=== PATIENT | female | born 1975 | race African-American/Black ===

== ENCOUNTER 2017-02-27 05:25 | Emergency (ER) | payer SELFPAY ==
[~2017-02-27] VITALS: Ht 154.9 cm; Wt 91.0 kg
[2017-02-27] MEDS ORDERED: ONDANSETRON HCL 4MG/2ML VIAL IV STA (07:19)
[2017-02-27] MEDS ORDERED: MORPHINE SULFATE 4 MG/ML CPJ (NOT FOR IM USE) IV STA ×2 (07:19→09:10)
[2017-02-27] MEDS ORDERED: SODIUM CHLORIDE 0.9% 1,000 ML IV ONE (07:19)
[2017-02-27 07:25] LABS: BASOPHILS % 0.3 % (0.0-2.0); EOSINOPHILS % 1.3 % (0.0-5.0); HEMATOCRIT. 35.6 % (36.0-48.0); HEMOGLOBIN. 11.8 g/dL (12.0-16.0); LYMPHOCYTES % 10.6 % (20.0-50.0); MEAN CORPUSCULAR HEMOGLOBIN 29.4 pg (28.0-32.0); MEAN CORPUSCULAR VOLUME 88.3 fL (81.0-99.0); MEAN PLATELET VOLUME 7.5 fl (7.4-10.4); MONOCYTES % 7.7 % (2.0-8.0); NEUTROPHILS % 80.1 % (40.0-76.0); PLATELET 190 x1000/uL (130-400); RED BLOOD CELL COUNT 4.03 mill/uL (4.2-5.4)
[2017-02-27 07:31] LABS: CHLORIDE 112 mEq/L (98-107)
[2017-02-27 07:33] LABS: PROTHROMBIN TIME 10.7 sec (9.4-11.6)
[2017-02-27 07:40] LABS: CARBON DIOXIDE 22 mEq/L (21-32)
[2017-02-27 08:14] LABS: CLARITY URINE CLEAR (CLEAR); COLOR URINE YELLOW (YELLOW); KETONES URINE NEGATIVE (NEGATIVE); LEUKOCYTE ESTERASE URINE NEGATIVE (NEGATIVE); NITRITE URINE NEGATIVE (NEGATIVE); OCCULT BLOOD URINE NEGATIVE (NEGATIVE); PROTEIN URINE NEGATIVE (NEGATIVE); SPECIFIC GRAVITY URINE 1.021 (1.005-1.030); UROBILINOGEN URINE 0.2 E.U./dL (0.2-1.0)
[2017-02-27] MEDS ORDERED: FAMOTIDINE 20MG/2ML VIAL IV ONE (09:15)
[2017-02-27] MEDS ORDERED: IOHEXOL-300 100 ML BOTTLE ONE (10:05)
[2017-02-27] MEDS ORDERED: METOCLOPRAMIDE HCL 10MG/2ML VIAL IV STA (10:49)
[2017-02-27] MEDS ORDERED: HYDROCODONE/APAP 7.5/325MG 1 TAB TABLET PO ONE (11:00)
[2017-02-27 11:55] VITALS: BP 100/67
== END 2017-02-27 12:05 | disposition home or self-care (01) ==
LOC: ER 07:12
DX: K52.9 Noninfective gastroenteritis and colitis, unspecified (principal); F31.9 Bipolar disorder, unspecified; F43.20 Adjustment disorder, unspecified; Z90.49 Acquired absence of other specified parts of digestive tract
CPT/HCPCS: 36415; 74177; 80053; 81003; 81025; 83690; 85025; 85610; 96361; 96374; 96375; 96376; 99285; J2270; J2405; J2765; J3490; J7030; Q9967; Z7610

== ENCOUNTER 2017-12-01 17:54 | Emergency (ER) | payer SELFPAY ==
[~2017-12-01] VITALS: Ht 180.3 cm; Wt 91.0 kg
[2017-12-01] MEDS ORDERED: ONDANSETRON HCL 4MG/2ML INJ IV STA (19:52)
[2017-12-01] MEDS ORDERED: MORPHINE SULFATE 4 MG/ML CPJ (NOT FOR IM USE) IV STA (19:52)
[2017-12-01] MEDS ORDERED: FAMOTIDINE 20MG/2ML VIAL IV STA (19:52)
[2017-12-01] MEDS ORDERED: SODIUM CHLORIDE 0.9% 1,000 ML IV ONE (19:52)
[2017-12-01] MEDS ORDERED: LORAZEPAM 2MG/ML CPJ IV ONE ×2 (20:00→22:30)
[2017-12-01 20:57] LABS: CLARITY URINE CLOUDY (CLEAR); COLOR URINE YELLOW (YELLOW); KETONES URINE NEGATIVE (NEGATIVE); LEUKOCYTE ESTERASE URINE NEGATIVE (NEGATIVE); NITRITE URINE NEGATIVE (NEGATIVE); OCCULT BLOOD URINE NEGATIVE (NEGATIVE); PH URINE 7.5 (4.5-8.0); PROTEIN URINE NEGATIVE (NEGATIVE); SPECIFIC GRAVITY URINE 1.019 (1.005-1.030); UROBILINOGEN URINE 0.2 E.U./dL (0.2-1.0)
[2017-12-01 21:07] LABS: *AMPHETAMINES SCREEN URINE NEGATIVE (NEGATIVE); *BARBITURATES SCREEN URINE NEGATIVE (NEGATIVE); *BENZODIAZEPINES SCREEN URINE NEGATIVE (NEGATIVE); *COCAINE SCREEN URINE NEGATIVE (NEGATIVE)
[2017-12-01 21:08] LABS: METHADONE URINE SCREEN NEGATIVE (NEGATIVE); PHENCYCLIDINE URINE SCREEN NEGATIVE (NEGATIVE)
[2017-12-01 21:09] LABS: CANNABINOID URINE SCREEN PRESUMTIVE POSITIVE (NEGATIVE); OPIATES URINE SCREEN PRESUMTIVE POSITIVE (NEGATIVE)
[2017-12-01 22:08] LABS: HCG SCREEN NEGATIVE
[2017-12-01 22:11] LABS: CHLORIDE 111 mEq/L (98-107)
[2017-12-01 22:12] LABS: BASOPHILS % 0.3 % (0.0-2.0); EOSINOPHILS % 0.1 % (0.0-5.0); HEMATOCRIT. 36.1 % (36.0-48.0); HEMOGLOBIN. 11.8 g/dL (12.0-16.0); LYMPHOCYTES % 10.6 % (20.0-50.0); MEAN CORPUSCULAR VOLUME 89.2 fL (81.0-99.0); RED BLOOD CELL COUNT 4.05 mill/uL (4.2-5.4); RED CELL DISTRIBUTION WIDTH 13.8 % (11.6-14.6)
[2017-12-01 22:14] LABS: INR 1.1; PROTHROMBIN TIME 10.6 sec (9.1-11.1)
[2017-12-01 22:16] LABS: ETHANOL BLOOD < 10 mg/dL
[2017-12-01 23:41] VITALS: BP 118/75
== END 2017-12-01 23:45 | disposition home or self-care (01) ==
LOC: ER 23:01
DX: R10.13 Epigastric pain (principal); K50.90 Crohn's disease, unspecified, without complications; F12.10 Cannabis abuse, uncomplicated; F11.10 Opioid abuse, uncomplicated; K42.9 Umbilical hernia without obstruction or gangrene; R73.9 Hyperglycemia, unspecified; Z90.49 Acquired absence of other specified parts of digestive tract; Z88.6 Allergy status to analgesic agent
CPT/HCPCS: 36415; 74176; 80053; 80305; 81003; 81025; 83690; 84703; 85025; 85610; 96361; 96374; 96375; 96376; 99285; C1893; G0482; J2060; J2270; J2405; J3490; J7030; Z7610